=== PATIENT | female | born 1975 | race Caucasian/White ===

== ENCOUNTER 2018-05-01 22:41 | Emergency (ER) | payer OTHER ==
[~2018-05-01] VITALS: Ht 160 cm; Wt 90.0 kg
[2018-05-01 23:02] VITALS: BP 111/82
--- NOTE | 2018-05-01 23:07 | NUR ---
PT RETURNED TO LOBBY IN STABLE CONDITION
--- NOTE | 2018-05-01 23:32 | NUR ---
PT AMBULATED TO BED 6
--- NOTE | 2018-05-01 23:45 | NUR ---
PT BIB S/O C/O LOWER BACK PAIN TO RIGHT SIDE AFTER SLIP AND FALL ON WATER AT 1730. DENIES LOC, N/V. 11/21 SHARP/STIFF RIGHT LOWER BACK PAIN, RADIATES THROUGH OUT RIDE SIDE OF BODY. AAOX4. SKIN WARM, DRY AND INTACT. PERRLA. PT IN GOWN IN BED, BED IN LOWER LOCKED POSITION. ER MADE AWARE OF PT STATUS. SX--HYSTORECTOMY 2013, HERNIATED DISK REPAIR 2016 RX--DENIES
--- NOTE | 2018-05-02 00:42 | NUR ---
PT TAKEN TO RADIOLOGY VIA WHEELCHAIR BY TECH.
--- NOTE | 2018-05-02 00:53 | NUR ---
PT BACK IN BED FROM RADIOLOGY, SAFETY MEASURES IN PLACE.
--- NOTE | 2018-05-02 01:24 | NUR ---
Dr. Cannon evaluating patient at bedside.
[2018-05-02] MEDS ORDERED: KETOROLAC 60 MG/2 ML VIAL IM ONE (01:30)
--- NOTE | 2018-05-02 01:44 | NUR ---
PT TAKEN TO RADIOLOGY VIA WHEELCHAIR.
--- NOTE | 2018-05-02 02:12 | NUR ---
Patient discharged with v/s stable. Written and verbal after care instructions given and explained. Patient alert, oriented and verbalized understanding of instructions. Ambulatory with steady gait. All questions addressed prior to discharge. ID band removed. Patient advised to follow up with PMD. Rx of Motrin, and Tramadol given. Patient educated on indication of medication including possible reaction and side effects. Opportunity to ask questions provided and answered.
[2018-05-02 02:24] VITALS: BP 112/76
== END 2018-05-02 02:12 | disposition home or self-care (01) ==
LOC: MED 22:41
DX: S20.211A Contusion of right front wall of thorax, initial encounter (principal); M54.5 Low back pain; F41.9 Anxiety disorder, unspecified; Z88.0 Allergy status to penicillin; Z90.710 Acquired absence of both cervix and uterus; W16.42XA Fall into unspecified water causing other injury, initial encounter; Y93.89 Activity, other specified; Y92.89 Other specified places as the place of occurrence of the external cause; Y99.8 Other external cause status
CPT/HCPCS: 71101; 72100; 81002; 81025; 96372; 99283; J1885